=== PATIENT | male | born 1955 | race Two or more races ===

== ENCOUNTER 2017-06-21 22:31 | Inpatient (IN) | payer MEDICARE, MEDICAID ==
[~2017-06-21] VITALS: Ht 165.1 cm; Wt 29.7 kg
[2017-06-21] MEDS ORDERED: SODIUM CHLORIDE 0.9% 1,000 ML IV ONE (23:06)
[2017-06-21] MEDS ORDERED: ONDANSETRON HCL 4MG/2ML VIAL IV STA (23:06)
[2017-06-21] MEDS ORDERED: MORPHINE SULFATE 4 MG/ML CPJ (NOT FOR IM USE) IV STA (23:06)
[2017-06-21] MEDS ORDERED: PIPERACILLIN/TAZ 3.375G PREMIX 50 ML IV ONE (23:15)
[2017-06-21] MEDS ORDERED: CLONIDINE 0.2MG TABLET PO ONE (23:15)
[2017-06-21] MEDS ORDERED: VANCOMYCIN 1 G PREMIX 200 ML IV ONE (23:15)
[2017-06-21 23:33] LABS: BASOPHILS % 0.7 % (0.0-2.0); EOSINOPHILS % 0.9 % (0.0-5.0); HEMATOCRIT. 32.2 % (42.0-52.0); LYMPHOCYTES % 16.8 % (20.0-50.0); MEAN CORPUSCULAR HEMOGLOBIN 31.8 pg (28.0-32.0); MEAN CORPUSCULAR VOLUME 93.3 fL (80.0-94.0); MEAN PLATELET VOLUME 6.6 fl (7.4-10.4); MONOCYTES % 5.6 % (2.0-8.0); PLATELET 413 x1000/uL (130-400); RED BLOOD CELL COUNT 3.45 mill/uL (4.7-6.1); RED CELL DISTRIBUTION WIDTH 16.9 % (11.6-14.6)
[2017-06-21 23:40] LABS: INR 1.2; PARTIAL THROMBOPLASTIN TIME 26.8 sec (23.4-31.0); PROTHROMBIN TIME 12.6 sec (9.4-11.6)
[2017-06-21 23:44] LABS: CARBON DIOXIDE 30 mEq/L (21-32); CHLORIDE 95 mEq/L (98-107)
[2017-06-22] MEDS ORDERED: SODIUM POLYSTYRENE SULFONATE 15 G/60 ML BOT PO ONE (00:15)
[2017-06-22] MEDS ORDERED: DEXTROSE 50% WATER 50ML SYRINGE IV ONE (00:15)
[2017-06-22] MEDS ORDERED: INSULIN REGULAR (HUMULIN R) 300UNITS/3ML IV ONE (00:15)
[2017-06-22] MEDS ORDERED: SODIUM BICARBONATE 8.4% 1 MEQ/ML 50ML SYR IV ONE (00:15)
[2017-06-22] MEDS ORDERED: ALBUTEROL (0.083%) 2.5MG/3ML NEB HHN ONE (00:15)
[2017-06-22 03:42] VITALS: BP 116/62
[2017-06-22] MEDS ORDERED: DOCUSATE SODIUM 100MG CAPSULE PO PRN (04:45)
[2017-06-22] MEDS ORDERED: DEXTROSE 50% WATER 50ML SYRINGE IV PRN (04:45)
[2017-06-22] MEDS: SODIUM CHLORIDE 0.9% INJ 3ML FLUSH IVF SCH ×3 (05:43→22:03)
[2017-06-22] MEDS: BLOOD SUGAR DIAGNOSTIC STRIP TEST SCH ×4 (06:10→21:58)
[2017-06-22 08:00] VITALS: BP 134/66
[2017-06-22] MEDS: INSULIN LISPRO 100 UNITS/ML SUBCUT SCH ×4 (08:10→21:00)
[2017-06-22 12:00] VITALS: BP 156/70
[2017-06-22] MEDS: HYDROCODONE/ACETAMINOPHEN 5/325MG TABLET PO PRN ×3 (12:35→23:19)
[2017-06-22 12:44] LABS: AMMONIA 26 uMol/L (<32)
[2017-06-22 13:29] LABS: PHOSPHORUS 5.8 mg/dL (2.5-4.9)
[2017-06-22 13:52] LABS: HEPATITIS B SURFACE ANTIGEN NEGATIVE
[2017-06-22 14:21] LABS: HEPATITIS B CORE AB IGM NEGATIVE
[2017-06-22 14:22] LABS: HEPATITIS A AB IGM NEGATIVE (NEGATIVE)
[2017-06-22 16:00] VITALS: BP 130/70
[2017-06-22 20:14] VITALS: BP 153/84
[2017-06-22] MEDS: CARVEDILOL 3.125 MG TABLET PO SCH (22:03)
[2017-06-22] MEDS: CLONIDINE 0.1MG TABLET PO PRN (23:20)
[2017-06-22 23:51] VITALS: BP 172/91
[2017-06-23 04:00] VITALS: BP 136/78
[2017-06-23] MEDS: BLOOD SUGAR DIAGNOSTIC STRIP TEST SCH ×2 (05:06→07:57)
[2017-06-23] MEDS: SODIUM CHLORIDE 0.9% INJ 3ML FLUSH IVF SCH ×3 (05:06→20:54)
[2017-06-23] MEDS: HYDROCODONE/ACETAMINOPHEN 5/325MG TABLET PO PRN ×4 (05:46→20:54)
[2017-06-23] MEDS: DIPHENHYDRAMINE 50MG/ML VIAL IV PRN ×2 (05:49→23:49)
[2017-06-23] MEDS: INSULIN LISPRO 100 UNITS/ML SUBCUT SCH (07:57)
[2017-06-23 08:00] VITALS: BP 132/74
[2017-06-23 08:40] LABS: BASOPHILS % 0.9 % (0.0-2.0); EOSINOPHILS % 3.4 % (0.0-5.0); HEMATOCRIT. 28.6 % (42.0-52.0); HEMOGLOBIN. 9.4 g/dL (14.0-18.0); LYMPHOCYTES % 15.7 % (20.0-50.0); MEAN CORPUSCULAR HEMOGLOBIN 31.1 pg (28.0-32.0); MEAN CORPUSCULAR VOLUME 94.5 fL (80.0-94.0); MEAN PLATELET VOLUME 6.8 fl (7.4-10.4); MONOCYTES % 7.9 % (2.0-8.0); NEUTROPHILS % 72.1 % (40.0-76.0); PLATELET 326 x1000/uL (130-400); RED BLOOD CELL COUNT 3.03 mill/uL (4.7-6.1); RED CELL DISTRIBUTION WIDTH 17.1 % (11.6-14.6)
[2017-06-23] MEDS: CARVEDILOL 3.125 MG TABLET PO SCH ×2 (09:17→20:53)
[2017-06-23] MEDS ORDERED: SODIUM POLYSTYRENE SULFONATE 15 G/60 ML BOT PO SCH (10:15)
[2017-06-23 12:00] VITALS: BP 168/90
[2017-06-23] MEDS: SILVER SULFADIAZINE 1% CREAM 50GM TOP SCH (12:19)
[2017-06-23 16:00] VITALS: BP 184/82
[2017-06-23] MEDS: CLONIDINE 0.1MG TABLET PO PRN (16:47)
[2017-06-23 20:00] VITALS: BP 195/86
[2017-06-24] VITALS: BP 170/92
[2017-06-24] MEDS: HYDROCODONE/ACETAMINOPHEN 5/325MG TABLET PO PRN ×5 (01:48→18:37)
[2017-06-24] MEDS: CLONIDINE 0.1MG TABLET PO PRN (01:50)
[2017-06-24 04:00] VITALS: BP 160/77
[2017-06-24] MEDS: SODIUM CHLORIDE 0.9% INJ 3ML FLUSH IVF SCH ×3 (06:01→22:02)
[2017-06-24 06:55] LABS: BASOPHILS % 0.9 % (0.0-2.0); EOSINOPHILS % 4.1 % (0.0-5.0); HEMATOCRIT. 26.4 % (42.0-52.0); HEMOGLOBIN. 8.9 g/dL (14.0-18.0); LYMPHOCYTES % 21.3 % (20.0-50.0); MEAN CORPUSCULAR HEMOGLOBIN 31.7 pg (28.0-32.0); MEAN CORPUSCULAR VOLUME 93.9 fL (80.0-94.0); MEAN PLATELET VOLUME 6.9 fl (7.4-10.4); MONOCYTES % 10.6 % (2.0-8.0); NEUTROPHILS % 63.1 % (40.0-76.0); PLATELET 291 x1000/uL (130-400); RED BLOOD CELL COUNT 2.81 mill/uL (4.7-6.1); RED CELL DISTRIBUTION WIDTH 17.4 % (11.6-14.6)
[2017-06-24 07:25] LABS: PHOSPHORUS 6.8 mg/dL (2.5-4.9)
[2017-06-24 08:00] VITALS: BP 124/65
[2017-06-24] MEDS: CARVEDILOL 3.125 MG TABLET PO SCH ×2 (08:35→22:02)
[2017-06-24] MEDS ORDERED: SODIUM POLYSTYRENE SULFONATE 15 G/60 ML BOT PO NR (09:00)
[2017-06-24] MEDS: SILVER SULFADIAZINE 1% CREAM 50GM TOP SCH (09:23)
[2017-06-24] MEDS: DIPHENHYDRAMINE 50MG/ML VIAL IV PRN ×2 (10:18→18:36)
[2017-06-24] MEDS ORDERED: LIDOCAINE HCL 1% 20ML VIAL (Pyxis) INJ ONE (11:14)
[2017-06-24] MEDS ORDERED: SODIUM BICARBONATE 4% (2.4MEQ) 5ML VIAL IV ONE (11:14)
[2017-06-24 12:35] VITALS: BP 149/71
[2017-06-24 16:00] VITALS: BP 135/59
[2017-06-24 20:00] VITALS: BP 165/64
[2017-06-25] VITALS (7 sets, daily range): BP systolic 106–183; BP diastolic 57–87
[2017-06-25] MEDS: CLONIDINE 0.1MG TABLET PO PRN ×2 (04:40→20:20)
[2017-06-25] MEDS: HYDROCODONE/ACETAMINOPHEN 5/325MG TABLET PO PRN ×4 (04:41→19:49)
[2017-06-25] MEDS: DIPHENHYDRAMINE 50MG/ML VIAL IV PRN ×4 (04:41→19:48)
[2017-06-25] MEDS: SODIUM CHLORIDE 0.9% INJ 3ML FLUSH IVF SCH ×2 (04:41→13:45)
[2017-06-25 05:57] LABS: BASOPHILS % 0.8 % (0.0-2.0); EOSINOPHILS % 2.4 % (0.0-5.0); HEMATOCRIT. 28.3 % (42.0-52.0); HEMOGLOBIN. 9.4 g/dL (14.0-18.0); LYMPHOCYTES % 19.7 % (20.0-50.0); MEAN CORPUSCULAR HEMOGLOBIN 30.8 pg (28.0-32.0); MEAN CORPUSCULAR VOLUME 93.1 fL (80.0-94.0); MEAN PLATELET VOLUME 7.1 fl (7.4-10.4); MONOCYTES % 7.5 % (2.0-8.0); NEUTROPHILS % 69.6 % (40.0-76.0); PLATELET 304 x1000/uL (130-400); RED BLOOD CELL COUNT 3.04 mill/uL (4.7-6.1); RED CELL DISTRIBUTION WIDTH 16.7 % (11.6-14.6)
[2017-06-25 06:42] LABS: PHOSPHORUS 7.2 mg/dL (2.5-4.9)
[2017-06-25] MEDS ORDERED: LISINOPRIL 10MG TABLET PO SCH (09:00)
[2017-06-25] MEDS ORDERED: FOLIC ACID/VITAMIN B COMP W-C TABLET PO SCH (09:00)
[2017-06-25] MEDS: CARVEDILOL 3.125 MG TABLET PO SCH ×2 (09:13→19:48)
[2017-06-25] MEDS: SILVER SULFADIAZINE 1% CREAM 50GM TOP SCH (09:20)
[2017-06-25] MEDS ORDERED: VANCOMYCIN 750 MG PREMIX 150 ML IV SCH (11:00)
[2017-06-25] MEDS ORDERED: CALCIUM ACETATE 667MG CAPSULE PO SCH (13:10)
[2017-06-25] MEDS ORDERED: EPOETIN ALFA 4000UNITS/ML VIAL SUBCUT SCH (21:00)
== END 2017-06-25 20:36 | DRG 432 ==
LOC: ER 22:31 → 7WST 06-22 02:25 → EDBEDREQ 06-22 02:34 → ENRESERV 06-22 02:47
PROVIDERS: ADMIT Internal Medicine; ATTEND Internal Medicine
PROC: 5A1D70Z Performance of Urinary Filtration, Intermittent, Less than 6 Hours Per Day (ICD-10-PCS; 2017-06-22)
PROC: 0W9G3ZZ Drainage of Peritoneal Cavity, Percutaneous Approach (ICD-10-PCS; principal; 2017-06-24)
PROC: 5A1D70Z Performance of Urinary Filtration, Intermittent, Less than 6 Hours Per Day (ICD-10-PCS; 2017-06-25)
DX: K74.60 Unspecified cirrhosis of liver (principal); N18.6 End stage renal disease; R18.8 Other ascites; E11.22 Type 2 diabetes mellitus with diabetic chronic kidney disease; E11.51 Type 2 diabetes mellitus with diabetic peripheral angiopathy without gangrene; E46 Unspecified protein-calorie malnutrition; I12.0 Hypertensive chronic kidney disease with stage 5 chronic kidney disease or end stage renal disease; E87.1 Hypo-osmolality and hyponatremia; L97.829 Non-pressure chronic ulcer of other part of left lower leg with unspecified severity; Z68.1 Body mass index [BMI] 19.9 or less, adult; B19.20 Unspecified viral hepatitis C without hepatic coma; E78.00 Pure hypercholesterolemia, unspecified; R27.8 Other lack of coordination; E78.5 Hyperlipidemia, unspecified; D64.9 Anemia, unspecified; L98.499 Non-pressure chronic ulcer of skin of other sites with unspecified severity; E11.622 Type 2 diabetes mellitus with other skin ulcer; E87.5 Hyperkalemia; Z99.2 Dependence on renal dialysis; Z89.422 Acquired absence of other left toe(s); Z59.0 Homelessness; F17.210 Nicotine dependence, cigarettes, uncomplicated; Z82.49 Family history of ischemic heart disease and other diseases of the circulatory system; Z83.3 Family history of diabetes mellitus
CPT/HCPCS: 36415; 49083; 71010; 80048; 80053; 82140; 82962; 83036; 83605; 83735; 84100; 85025; 85610; 85730; 86705; 86709; 86803; 86850; 86900; 87040; 87340; 93005; 93970; 94640; 96361; 96365; 96366; 96375; 97116; 97162; 97530; 99285; J0885; J1200; J1815; J2270; J2405; J2543; J3370; J3490; J7030; J7050; J7611